=== PATIENT | male | born 1930 | race Caucasian/White ===

== ENCOUNTER 2018-05-24 16:14 | Emergency (ER) | payer MEDICARE ==
[~2018-05-24] VITALS: Ht 185.4 cm; Wt 90.7 kg
[~2018-05-24 16:14] MED LIST: ASPI81EC PO; ATOR20 PO; BENAML10/5 PO; BENAML20/5 PO; Coumadin5 MG; DABI150C PO; GABA400 PO; HYDACE5 PO; HYDR1TAB94 PO; LANS30EC PO; LEVSOD150 PO; MAGGLU250 PO; METANIX; METANX CAPSULE1 EACH PO; METF500 PO; METO25ER PO; METO50ER PO; POTCHL20ER PO; Synthroid50 MCG PO
[2018-05-24 17:45] LABS: BASOPHILS ABSOLUTE AUTO 0.03 K/mm3 (0.00-0.23); BASOPHILS PERCENT AUTO 0 % (0-2); EOSINOPHILS ABSOLUTE AUTO 0.02 K/mm3 (0.00-0.68); EOSINOPHILS PERCENT AUTO 0 % (0-6); Hematocrit 40.7 % (37.0-53.0); Hemoglobin 13.6 g/dL (13.5-17.5); IMMATURE GRAN ABSOLUTE AUTO 0.05 K/mm3 (0.00-0.10); IMMATURE GRAN PERCENT AUTO 0 % (0-1); LYMPHOCYTES ABSOLUTE AUTO 0.79 K/mm3 (0.84-5.20); LYMPHOCYTES PERCENT AUTO 5 % (21-46); MONOCYTES ABSOLUTE AUTO 0.86 K/mm3 (0.16-1.47); MONOCYTES PERCENT AUTO 5 % (4-13); Mean Corpuscular HGB 32.1 pg (26.0-34.0); Mean Corpuscular HGB Conc 33.4 g/dL (31.5-36.5); Mean Corpuscular Volume 96 fL (80-100); Mean Platelet Volume 10.6 fL (9.1-12.4); NEUTROPHILS ABSOLUTE AUTO 15.23 K/mm3 (1.96-9.15); NEUTROPHILS PERCENT AUTO 90 % (41-73); Platelet Count 158 K/mm3 (150-400); RDW Coefficient Variation 14.4 % (11.7-14.2); RDW Standard Deviation 50.9 fL (35.1-46.3); Red Blood Cell Count 4.24 M/mm3 (4.30-5.90); White Blood Cell Count 16.98 K/mm3 (4.00-11.30)
[2018-05-24 17:58] LABS: Source, Urine Clean Catch
[2018-05-24 17:58] LABS: Albumin, Blood 3.8 g/dL (3.4-5.0); Albumin/Globulin Ratio 0.9 (0.8-1.8); Bilirubin, Total 6.7 mg/dL (0.1-1.0); Bun/Creatinine Ratio 14.2 (12.0-20.0); Calcium, Blood 8.8 mg/dL (8.5-10.1); Creatinine, Blood 1.41 mg/dL (0.60-1.20); Globulin, Blood 4.1 g/dL (2.2-4.0); Potassium, Blood 4.1 mmol/L (3.5-5.5); Total Protein, Blood 7.9 g/dL (6.4-8.2); Troponin I 0.027 ng/mL (0.000-0.040)
[2018-05-24 18:01] LABS: Blood, Urine 5+ (Neg); Glucose Qualitative, Urine Neg (Neg); Ketones, Urine 2+ (Neg); Leukocyte Esterase, Urine Neg (Neg); Nitrite, Urine Neg (Neg); Protein, Urine 4+ (Neg); Urobilinogen, Urine 2+ (Normal)
[2018-05-24 18:17] LABS: Bilirubin, Urine 2+ (Neg)
[2018-05-24 18:28] LABS: Appearance, Urine Hazy (Clear); Color, Urine Amber (P-Yellow)
[2018-05-24 18:29] LABS: Bacteria Mod /hpf; Squamous Epithelial Cells Few /hpf (Few)
[2018-05-24 18:30] LABS: Mucus Light (0-Heavy)
== END 2018-05-24 21:57 | disposition short-term general hospital (02) ==
LOC: ER 16:14
PROVIDERS: Emergency Medicine; Physician Assistant
DX: A41.9 Sepsis, unspecified organism (principal); K83.09 Other cholangitis; E87.2 Acidosis; I48.91 Unspecified atrial fibrillation; I10 Essential (primary) hypertension; Z88.8 Allergy status to other drugs, medicaments and biological substances; Z88.2 Allergy status to sulfonamides; Z79.899 Other long term (current) drug therapy; Z79.84 Long term (current) use of oral hypoglycemic drugs; Z79.01 Long term (current) use of anticoagulants
CPT/HCPCS: 36415; 74176; 80053; 81001; 83605; 83690; 84484; 85025; 87040; 87077; 87086; 87186; 93005; 93010; 96361; 96365; 96375; 99285-25; J2405; J2543; J3010; J7030

== ENCOUNTER 2019-01-21 15:57 | Inpatient (IN) | payer MEDICARE ==
[~2019-01-21] VITALS: Ht 188 cm; Wt 91.1 kg
[~2019-01-21 15:57] MED LIST changes: +Amlodipine-Ben1 EACH PO; +Augmentin 875-1 EACH PO; +BENADRYL25 MG PO; -BENAML20/5 PO; -Coumadin5 MG; +Coumadin5 MG PO; +LEVSOD100 PO; -LEVSOD150 PO; +Prednisone20 MG PO; +Prilosec Otc20 MG PO
[2019-01-21 16:28] LABS: BASOPHILS ABSOLUTE AUTO 0.04 K/mm3 (0.00-0.23); BASOPHILS PERCENT AUTO 0 % (0-2); EOSINOPHILS ABSOLUTE AUTO 0.06 K/mm3 (0.00-0.68); EOSINOPHILS PERCENT AUTO 1 % (0-6); Hematocrit 31.3 % (37.0-53.0); Hemoglobin 10.2 g/dL (13.5-17.5); IMMATURE GRAN ABSOLUTE AUTO 0.04 K/mm3 (0.00-0.10); IMMATURE GRAN PERCENT AUTO 0 % (0-1); LYMPHOCYTES ABSOLUTE AUTO 1.42 K/mm3 (0.84-5.20); LYMPHOCYTES PERCENT AUTO 12 % (21-46); MONOCYTES PERCENT AUTO 5 % (4-13); Mean Corpuscular HGB 29.7 pg (26.0-34.0); Mean Corpuscular HGB Conc 32.6 g/dL (31.5-36.5); Mean Corpuscular Volume 91 fL (80-100); Mean Platelet Volume 10.2 fL (9.1-12.4); NEUTROPHILS PERCENT AUTO 82 % (41-73); Platelet Count 210 K/mm3 (150-400); RDW Coefficient Variation 14.8 % (11.7-14.2); RDW Standard Deviation 49.2 fL (35.1-46.3); Red Blood Cell Count 3.43 M/mm3 (4.30-5.90); White Blood Cell Count 11.66 K/mm3 (4.00-11.30)
[2019-01-21] MEDS ORDERED: PAROEX473 ML PO (16:49)
[2019-01-21 16:50] LABS: Albumin, Blood 3.7 g/dL (3.4-5.0); Albumin/Globulin Ratio 1.2 (0.8-1.8); Bilirubin, Total 0.4 mg/dL (0.1-1.0); Calcium, Blood 8.9 mg/dL (8.5-10.1); Creatinine, Blood 1.48 mg/dL (0.60-1.20); Globulin, Blood 3.2 g/dL (2.2-4.0); Potassium, Blood 4.6 mmol/L (3.5-5.5); Total Protein, Blood 6.9 g/dL (6.4-8.2)
[2019-01-21] MEDS ORDERED: AMLODIPINE BESYLATE/ PO (16:50)
[2019-01-21] MEDS ORDERED: ATORVASTATIN CA20 MG PO (16:51)
[2019-01-21 17:03] LABS: Prothrombin Time Results >90.0 Sec (9.7-11.5)
[2019-01-21] MEDS ORDERED: Aspirin EC81 MG PO (18:25)
[2019-01-21] MEDS ORDERED: METANX CAPSULE1 EACH PO ×2 (18:29→19:20)
[2019-01-21] MEDS ORDERED: VITAMIN D31000 UNI2 PO (18:29)
[2019-01-21] MEDS ORDERED: ABAT250V (19:20)
--- NOTE | 2019-01-21 19:30 | NUR ---
ADMISISON PT ARRIVES TO PCU3 FROM ER VIA GURNEY. PT IS CURRENTLY AOX4. VSS, AMBULATES WITH STANDBY ASSIST TO HOSPITAL BED. PT REPORTS THAT HE AMBULATES INDEPENDENTLY WITH NO ASSISTIVE DEVICES AT HOME, APPEARS TO BE STEADY ON HIS FEET. DENIES DIZZYNESS, LIGHTHEADEDNESS. LUNG SOUNDS CLEAR THROUGHOUT, O2 SATS >90% ON RA. CARDIAC RHYTHM IS AFIB W/ BBB IN THE 70s. FAMILY AT BEDSIDE. PT ORIENTED TO ROOM AND CALL LIGHT SYSTEM. EDUCATED ON CALLING FOR ASSISTANCE R/T CURRENT ILLNESS- VERBALIZES UNDERSTANDING. WILL CONTINUE WITH ADMISSION AND MONITORING. BED IN LOW POSITION, CALL LIGHT IN REACH.
--- NOTE | 2019-01-21 21:30 | NUR ---
DR DAMIAN PHYSICIAN CONSULTED, DR DAMIAN, IN TO SEE PATIENT FOR CONSULTATION. DETERMINES THAT HE IS WANTING TO SCOPE PATIENT WHEN CLOTTING FACTORS HAVE NORMALIZED. VERBAL ORDERS TO ALLOW PT TO HAVE CLEAR LIQUID DIET WITH NO REDS FOR NOW. WILL INPUT ORDERS.
[2019-01-21] MEDS ORDERED: PERIDEX15 ML MM (21:46)
--- NOTE | 2019-01-21 23:54 | NUR ---
PROVIDER CONTACTED PT REQUESTING HOME NIGHTIME DOSE GABAPENTIN OF 400 MG. AGUS VILLANUEVA CONTACTED AND ORDERS RECEIVED FOR ONE TIME DOSE FOR THIS EVENING, BUT REQUESTING FOLLOWING PHYSICIAN TO DETERMINE DAILY USE FOR THIS ADMISSION. WILL INPUT ORDER AND ADMINISTER.
[2019-01-22 04:16] LABS: BASOPHILS ABSOLUTE AUTO 0.02 K/mm3 (0.00-0.23); BASOPHILS PERCENT AUTO 0 % (0-2); EOSINOPHILS ABSOLUTE AUTO 0.16 K/mm3 (0.00-0.68); EOSINOPHILS PERCENT AUTO 2 % (0-6); Hematocrit 21.3 % (37.0-53.0); IMMATURE GRAN ABSOLUTE AUTO 0.03 K/mm3 (0.00-0.10); IMMATURE GRAN PERCENT AUTO 0 % (0-1); LYMPHOCYTES ABSOLUTE AUTO 2.18 K/mm3 (0.84-5.20); LYMPHOCYTES PERCENT AUTO 29 % (21-46); MONOCYTES PERCENT AUTO 9 % (4-13); Mean Corpuscular HGB 28.9 pg (26.0-34.0); Mean Corpuscular HGB Conc 32.9 g/dL (31.5-36.5); Mean Platelet Volume 10.5 fL (9.1-12.4); NEUTROPHILS ABSOLUTE AUTO 4.41 K/mm3 (1.96-9.15); NEUTROPHILS PERCENT AUTO 59 % (41-73); Platelet Count 147 K/mm3 (150-400); RDW Coefficient Variation 14.6 % (11.7-14.2); RDW Standard Deviation 47.3 fL (35.1-46.3); Red Blood Cell Count 2.42 M/mm3 (4.30-5.90)
[2019-01-22 04:19] LABS: Mean Corpuscular Volume 88 fL (80-100)
[2019-01-22 04:29] LABS: International Normalized Ratio 3.67; Prothrombin Time Results 34.6 Sec (9.7-11.5)
[2019-01-22 04:35] LABS: Albumin/Globulin Ratio 1.2 (0.8-1.8); Bilirubin, Total 0.4 mg/dL (0.1-1.0); Bun/Creatinine Ratio 24.1 (12.0-20.0); Calcium, Blood 7.9 mg/dL (8.5-10.1); Creatinine, Blood 1.33 mg/dL (0.60-1.20); Globulin, Blood 2.5 g/dL (2.2-4.0); Total Protein, Blood 5.5 g/dL (6.4-8.2)
--- NOTE | 2019-01-22 04:35 | NUR ---
PROVIDER CONTACTED PT WITH DROP IN HEMOGLOBIN TO 7.0. DR BARNETT CONTACTED AND ORDERS RECEIVED TO TRANSFUSE ONE UNIT PRBCs. WILL INPUT ORDER AND ADMINISTER.
--- NOTE | 2019-01-22 06:34 | NUR ---
SHIFT SUMMARY PT HAS REMAINED AOX4 THROUGHOUT THE NIGHT. VSS. PLEASANT AND COOPERATIVE WITH CARE. HAS RESTED THROUGHOUT MUCH OF THE NIGHT, BUT REPORTS THAT "HE DID NOT SLEEP WELL". DENIES PAIN. DENIES N/V, TOLERATING CLEAR LIQUID DIET WELL. DR NATI DE LA CRUZ WITH DARK DIET SODA. TWO UNITS FFP GIVEN AT START OF SHIFT, PT TOLERATED WELL. PROTONIX DRIP CONTINUES TO INFUSE AND BLOOD SLIP READY TO SEND TO LAB FOR INITIATION. NO OTHER CHANGES NOTED FROM INITIAL ASSESSMENT. WILL CONTINUE TO MONITOR AND REPORT TO ONCOMING SHIFT RN. BED IN LOW POSITION, CALL LIGHT IN REACH.
--- NOTE | 2019-01-22 07:38 | NUR ---
AM NOTE. ASSUMED CARE OF PT APROX 0700, PT IS A&Ox4 AND SBA IN THE ROOM. PT DENIES ANY CHEST PAIN/PRESSURE, N/V, SOB OR LIGHTHEADED/DIZZINESS. PT IS TO GET 1 UNIT PRBCS, PT IS AWARE AND AGREEABLE. PT'S VS STABLE AT THIS TIME. PT IS IN AFIB IN THE 90'S, MURMUR HEARD, PT HAS HAD VALVES REPLACED. L/S CLEAR T/O, BT PRESENT AND HYPERACTIVE IN ALL QUADS. ABD IS SOFT AND NONTENDER TO PALP. NO EDEMA NOTED ON ASSESMENT. CALL LIGHT IN REACH, WILL CONTINUE TO MONITOR.
--- NOTE | 2019-01-22 10:35 | NUR ---
PT UPDATE... PT GOT UP TO USE THE BATHROOM. PT HAD MULTIPLE LIQUID MAROON/BLACK BMS. PT BECAME PALE, LIGHTHEADED AND DIAPHORETIC DURING THIS TIME. PT WAS HELPED BACK TO BED. 1UNIT OF PRBCS ABOUT TO BE TRANSFUSED.
[2019-01-22 10:52] LABS: Hematocrit 21.8 % (37.0-53.0); Hemoglobin 7.1 g/dL (13.5-17.5)
--- NOTE | 2019-01-22 15:32 | NUR ---
Pt visit this afternoon. Pt visiting with many people in the room. Pt appears comfortable at this time. Instructed Pt palliative care will F/U at a later time. Spoke with bedside nurse and discussed case. Reviewed chart and plan of care.
[2019-01-22 17:17] LABS: Hematocrit 23.1 % (37.0-53.0); Hemoglobin 7.4 g/dL (13.5-17.5)
--- NOTE | 2019-01-22 19:27 | NUR ---
SHIFT SUMMARY. PT HAS NOT HAD ANY MORE MAROON/BLACK STOOLS SINCE FIRST EPISODE THIS AM. PT'S VS HAVE BEEN STABLE. 1 UNIT OF PRBCS TRANSFUSED. PT'S AT THE BEDSIDE MOST OF THE DAY. WILL CONTINUE TO MONITOR UNTIL REPORT IS GIVEN TO ONCOMING RN
[2019-01-22 23:05] LABS: Hematocrit 22.8 % (37.0-53.0); Hemoglobin 7.5 g/dL (13.5-17.5)
[2019-01-23 04:17] LABS: BASOPHILS ABSOLUTE AUTO 0.02 K/mm3 (0.00-0.23); BASOPHILS PERCENT AUTO 0 % (0-2); EOSINOPHILS ABSOLUTE AUTO 0.26 K/mm3 (0.00-0.68); EOSINOPHILS PERCENT AUTO 3 % (0-6); Hemoglobin 7.8 g/dL (13.5-17.5); IMMATURE GRAN ABSOLUTE AUTO 0.03 K/mm3 (0.00-0.10); IMMATURE GRAN PERCENT AUTO 0 % (0-1); LYMPHOCYTES ABSOLUTE AUTO 2.09 K/mm3 (0.84-5.20); LYMPHOCYTES PERCENT AUTO 27 % (21-46); MONOCYTES ABSOLUTE AUTO 0.68 K/mm3 (0.16-1.47); MONOCYTES PERCENT AUTO 9 % (4-13); Mean Corpuscular HGB 29.1 pg (26.0-34.0); Mean Corpuscular HGB Conc 32.5 g/dL (31.5-36.5); Mean Corpuscular Volume 90 fL (80-100); Mean Platelet Volume 10.3 fL (9.1-12.4); NEUTROPHILS ABSOLUTE AUTO 4.56 K/mm3 (1.96-9.15); NEUTROPHILS PERCENT AUTO 60 % (41-73); Platelet Count 152 K/mm3 (150-400); RDW Coefficient Variation 14.9 % (11.7-14.2); RDW Standard Deviation 47.9 fL (35.1-46.3); Red Blood Cell Count 2.68 M/mm3 (4.30-5.90); White Blood Cell Count 7.64 K/mm3 (4.00-11.30)
[2019-01-23 04:31] LABS: International Normalized Ratio 1.86; Prothrombin Time Results 18.6 Sec (9.7-11.5)
[2019-01-23 04:34] LABS: Bun/Creatinine Ratio 19.6 (12.0-20.0); Calcium, Blood 7.8 mg/dL (8.5-10.1); Creatinine, Blood 1.38 mg/dL (0.60-1.20); Potassium, Blood 3.9 mmol/L (3.5-5.5)
--- NOTE | 2019-01-23 10:46 | NUR ---
Initial Visit: Palliative Care Consult for Advanced Care Planning. Pt is A&O and denies pain at this time. Pt denies dyspnea, anxiety, and nausea. Pt's Yesica is present during visit. Engaged in therapeutic discussion regarding advanced care planning with Pt and . Pt reports living at home with his and is of [employer] laila. Pt reports he is independent of his ADLs and still drives. Pt reports adequate support and can call on his son if needs of care arises. Discussed AD/POLST with Pt. Pt reports having a POLST completed at home. Requested Yesica to bring in for medical records. Pt and report no concerns at this time. Spoke with bedside nurse Loretta and discussed case. No concerns reported at this time. Palliative Care will remain available.
[2019-01-23 11:20] LABS: Hematocrit 24.5 % (37.0-53.0)
--- NOTE | 2019-01-23 14:28 | NUR ---
01/23/19 1428 Nadja Doe History, Chart, Medications and Allergies reviewed before start of procedure.PATIENT CONFIRMS NPO STATUS AND AGREES WITH SCHEDULED PROCEDURE.MONITOR INTACT WITH CONTINUOUS PULSE OXIMETRY AND INTERMITTENT BP. O2 VIA N/C INTACT THROUGHOUT SEDATION/PROCEDURE. 3-LEAD EKG REVIEWED WITH PHYSICIAN PRIOR TO START OF PROCEDURE. PATIENT DETERMINED TO BE ASA APPROPRIATE FOR PROPOFOL SEDATION PRIOR TO START OF PROCEDURE BY DR. DAMIAN.
--- NOTE | 2019-01-23 15:15 | NUR ---
PT TRANSPORTED TO [facility]. AGREES WITH PLANNED PROCEDURE.
--- NOTE | 2019-01-23 15:17 | NUR ---
day surgery Pt transfered to day surgery for scope with dr Moore. Family at bedside with pt. megan JUAN.
--- NOTE | 2019-01-23 15:21 | NUR ---
LUNG SOUND CLEAR.
--- NOTE | 2019-01-23 16:03 | NUR ---
NOTE PT HAS HAD NO BOWEL MOVEMENTS TODAY. PROTONIX INFUSING AT 10ML/HR. PT DENIED ABD. CRAMPING, BLOATING OR N/V. NPO FOR SCOPE. PT USING ORAL SWABS WITH ICE WATER FOR WETTING HIS MOUTH. VSS. AT BEDSIDE. CONTINUE POT.
[2019-01-24 04:09] LABS: BASOPHILS ABSOLUTE AUTO 0.03 K/mm3 (0.00-0.23); BASOPHILS PERCENT AUTO 1 % (0-2); EOSINOPHILS ABSOLUTE AUTO 0.23 K/mm3 (0.00-0.68); EOSINOPHILS PERCENT AUTO 4 % (0-6); Hematocrit 24.1 % (37.0-53.0); Hemoglobin 7.9 g/dL (13.5-17.5); IMMATURE GRAN ABSOLUTE AUTO 0.03 K/mm3 (0.00-0.10); IMMATURE GRAN PERCENT AUTO 1 % (0-1); LYMPHOCYTES ABSOLUTE AUTO 1.97 K/mm3 (0.84-5.20); LYMPHOCYTES PERCENT AUTO 30 % (21-46); MONOCYTES ABSOLUTE AUTO 0.66 K/mm3 (0.16-1.47); MONOCYTES PERCENT AUTO 10 % (4-13); Mean Corpuscular HGB Conc 32.8 g/dL (31.5-36.5); Mean Corpuscular Volume 89 fL (80-100); Mean Platelet Volume 10.1 fL (9.1-12.4); NEUTROPHILS ABSOLUTE AUTO 3.66 K/mm3 (1.96-9.15); NEUTROPHILS PERCENT AUTO 56 % (41-73); Platelet Count 163 K/mm3 (150-400); RDW Coefficient Variation 14.6 % (11.7-14.2); RDW Standard Deviation 47.1 fL (35.1-46.3); Red Blood Cell Count 2.72 M/mm3 (4.30-5.90); White Blood Cell Count 6.58 K/mm3 (4.00-11.30)
--- NOTE | 2019-01-24 04:20 | NUR ---
SHIFT SUMMARY: PATIENT X2 BLACK STOOLS THIS SHIFT BUT HGB STILL IMPROVING. NO OTHER ISSUES NOTED, CALL LIGHT WITHIN REACH, BED LOW AND LOCKED.
[2019-01-24 04:23] LABS: International Normalized Ratio 1.37; Prothrombin Time Results 14.1 Sec (9.7-11.5)
--- NOTE | 2019-01-24 12:30 | NUR ---
DISCHARGE INSTRUCTIONS PROVIDED. PT EDUCATED ON COUMADIN. NO NEW MEDICATIONS. ALL QUESTIONS ANSWERED. PT TAKEN OUT BY WHEELCHAIR.
== END 2019-01-24 12:35 | disposition home or self-care (01) | DRG 918 ==
LOC: ER 15:57 → PCU 17:51
PROVIDERS: Emergency Medicine; Internal Medicine Gastroenterology; Student in an Organized Health Care Education/Training Program; ADMIT Internal Medicine
PROC: 30233K1 Transfusion of Nonautologous Frozen Plasma into Peripheral Vein, Percutaneous Approach (ICD-10-PCS; 2019-01-22)
PROC: 30233N1 Transfusion of Nonautologous Red Blood Cells into Peripheral Vein, Percutaneous Approach (ICD-10-PCS; 2019-01-22)
PROC: 0DJD8ZZ Inspection of Lower Intestinal Tract, Via Natural or Artificial Opening Endoscopic (ICD-10-PCS; 2019-01-23)
PROC: 0DJ08ZZ Inspection of Upper Intestinal Tract, Via Natural or Artificial Opening Endoscopic (ICD-10-PCS; principal; 2019-01-23 13:00)
DX: T45.511A Poisoning by anticoagulants, accidental (unintentional), initial encounter (principal); D68.32 Hemorrhagic disorder due to extrinsic circulating anticoagulants; K92.1 Melena; D62 Acute posthemorrhagic anemia; K22.70 Barrett's esophagus without dysplasia; K44.9 Diaphragmatic hernia without obstruction or gangrene; K31.7 Polyp of stomach and duodenum; K63.9 Disease of intestine, unspecified; D13.7 Benign neoplasm of endocrine pancreas; I48.2 Chronic atrial fibrillation; I12.9 Hypertensive chronic kidney disease with stage 1 through stage 4 chronic kidney disease, or unspecified chronic kidney disease; E11.22 Type 2 diabetes mellitus with diabetic chronic kidney disease; N18.3 Chronic kidney disease, stage 3 (moderate); I77.89 Other specified disorders of arteries and arterioles; K21.9 Gastro-esophageal reflux disease without esophagitis; E78.5 Hyperlipidemia, unspecified; N40.1 Benign prostatic hyperplasia with lower urinary tract symptoms; R33.8 Other retention of urine; E11.40 Type 2 diabetes mellitus with diabetic neuropathy, unspecified; E89.0 Postprocedural hypothyroidism; Z85.850 Personal history of malignant neoplasm of thyroid; Z95.2 Presence of prosthetic heart valve; Z88.2 Allergy status to sulfonamides; Z88.8 Allergy status to other drugs, medicaments and biological substances; Z79.01 Long term (current) use of anticoagulants; Z79.82 Long term (current) use of aspirin; Z79.899 Other long term (current) drug therapy
CPT/HCPCS: 36415; 36430; 80048; 80053; 82272; 82947; 85014; 85018; 85025; 85610; 85730; 86850; 86900; 86901; 86923; 93005; 93010; 96365; 99285-25; C9113; J2704; J7030; J7120; P9016; P9059

== ENCOUNTER → 2019-03-07 | Outpatient (CLI) | payer MEDICARE ==
[~2019-03-07] MED LIST changes: +ABAT250V; +AMLODIPINE BESYLATE/ PO; +ATORVASTATIN CA20 MG PO; +Aspirin EC81 MG PO; +PAROEX473 ML PO; +PERIDEX15 ML MM; +VITAMIN D31000 UNI2 PO
[2019-03-08 13:37] LABS: Stool Occult Bld Immuno 1 Negative (NEGATIVE)
== END ==
LOC: OLS 13:30 → LAB SHORT 13:30 → LAB FUT 02-25 12:55
PROVIDERS: Student in an Organized Health Care Education/Training Program
DX: D50.0 Iron deficiency anemia secondary to blood loss (chronic) (principal)
CPT/HCPCS: 82274

== ENCOUNTER → 2019-04-27 | Outpatient (CLI) | payer MEDICARE | END | disposition home or self-care (01) | LOC: PLD 07:13 → LAB SHORT 07:13 | DX: C73 Malignant neoplasm of thyroid gland (principal) | CPT/HCPCS: 88173 ==

== ENCOUNTER → 2019-05-03 | Outpatient (CLI) | payer MEDICARE ==
[2019-05-03 11:02] LABS: BASOPHILS ABSOLUTE AUTO 0.06 K/mm3 (0.00-0.23); BASOPHILS PERCENT AUTO 1 % (0-2); EOSINOPHILS ABSOLUTE AUTO 0.81 K/mm3 (0.00-0.68); EOSINOPHILS PERCENT AUTO 8 % (0-6); Hematocrit 39.3 % (37.0-53.0); Hemoglobin 12.9 g/dL (13.5-17.5); IMMATURE GRAN ABSOLUTE AUTO 0.05 K/mm3 (0.00-0.10); IMMATURE GRAN PERCENT AUTO 1 % (0-1); LYMPHOCYTES ABSOLUTE AUTO 1.52 K/mm3 (0.84-5.20); LYMPHOCYTES PERCENT AUTO 16 % (21-46); MONOCYTES ABSOLUTE AUTO 0.67 K/mm3 (0.16-1.47); MONOCYTES PERCENT AUTO 7 % (4-13); Mean Corpuscular HGB 29.1 pg (26.0-34.0); Mean Corpuscular HGB Conc 32.8 g/dL (31.5-36.5); Mean Corpuscular Volume 89 fL (80-100); Mean Platelet Volume 10.2 fL (9.1-12.4); NEUTROPHILS PERCENT AUTO 68 % (41-73); Platelet Count 177 K/mm3 (150-400); RDW Standard Deviation 74.8 fL (35.1-46.3); Red Blood Cell Count 4.43 M/mm3 (4.30-5.90); White Blood Cell Count 9.71 K/mm3 (4.00-11.30)
[2019-05-03 11:16] LABS: Alanine Aminotransfer (ALT/SGP 28 U/L (12-78); Albumin, Blood 3.5 g/dL (3.4-5.0); Alk Phos 68 U/L (40-126); Anion Gap 9 mmol/L (6-16); Aspartate Aminotrans (AST/SGOT 22 U/L (12-37); Bilirubin, Total 0.6 mg/dL (0.1-1.0); Blood Urea Nitrogen 17 mg/dL (8-24); Bun/Creatinine Ratio 12.1 (12.0-20.0); CO2, Blood 26 mmol/L (21-32); Calcium, Blood 8.6 mg/dL (8.5-10.1); Chloride, Blood 101 mmol/L (98-108); Globulin, Blood 3.6 g/dL (2.2-4.0); Glomerular Filtration Rate 48 (60-); Glucose, Blood 222 mg/dL (70-99); Potassium, Blood 4.4 mmol/L (3.5-5.5); Sodium, Blood 136 mmol/L (136-145); Total Protein, Blood 7.1 g/dL (6.4-8.2)
[2019-05-03 11:17] LABS: Troponin I <0.017 ng/mL (0.000-0.040)
[2019-05-03 11:53] LABS: International Normalized Ratio 2.19; Prothrombin Time Results 21.6 Sec (9.7-11.5)
== END ==
LOC: LAB SHORT 10:57 → LAB EV 10:57
PROVIDERS: Emergency Medicine
DX: Z79.01 Long term (current) use of anticoagulants (principal); Z51.81 Encounter for therapeutic drug level monitoring; R07.9 Chest pain, unspecified
CPT/HCPCS: 80053; 84484; 85025; 85610

== ENCOUNTER 2019-06-01 05:29 | Emergency (ER) | payer OTHER, MEDICARE ==
[~2019-06-01] VITALS: Ht 185.4 cm; Wt 87.1 kg
[2019-06-01 05:54] LABS: BASOPHILS ABSOLUTE AUTO 0.12 K/mm3 (0.00-0.23); BASOPHILS PERCENT AUTO 1 % (0-2); EOSINOPHILS ABSOLUTE AUTO 1.72 K/mm3 (0.00-0.68); EOSINOPHILS PERCENT AUTO 8 % (0-6); Hematocrit 41.8 % (37.0-53.0); Hemoglobin 13.7 g/dL (13.5-17.5); IMMATURE GRAN ABSOLUTE AUTO 0.16 K/mm3 (0.00-0.10); IMMATURE GRAN PERCENT AUTO 1 % (0-1); LYMPHOCYTES ABSOLUTE AUTO 2.69 K/mm3 (0.84-5.20); LYMPHOCYTES PERCENT AUTO 13 % (21-46); MONOCYTES ABSOLUTE AUTO 1.73 K/mm3 (0.16-1.47); MONOCYTES PERCENT AUTO 8 % (4-13); Mean Corpuscular HGB 30.6 pg (26.0-34.0); Mean Corpuscular HGB Conc 32.8 g/dL (31.5-36.5); Mean Corpuscular Volume 93 fL (80-100); Mean Platelet Volume 9.4 fL (9.1-12.4); NEUTROPHILS ABSOLUTE AUTO 14.35 K/mm3 (1.96-9.15); NEUTROPHILS PERCENT AUTO 69 % (41-73); Platelet Count 209 K/mm3 (150-400); RDW Coefficient Variation 19.4 % (11.7-14.2); RDW Standard Deviation 69.2 fL (35.1-46.3); Red Blood Cell Count 4.48 M/mm3 (4.30-5.90); White Blood Cell Count 20.77 K/mm3 (4.00-11.30)
[2019-06-01 06:05] LABS: Alanine Aminotransfer (ALT/SGP 38 U/L (12-78); Albumin, Blood 3.4 g/dL (3.4-5.0); Albumin/Globulin Ratio 0.9 (0.8-1.8); Alk Phos 103 U/L (50-136); Anion Gap 6 mmol/L (6-16); Aspartate Aminotrans (AST/SGOT 22 U/L (12-37); Bilirubin, Total 0.8 mg/dL (0.1-1.0); Blood Urea Nitrogen 12 mg/dL (8-24); Bun/Creatinine Ratio 11.1 (12.0-20.0); CO2, Blood 28 mmol/L (21-32); Calcium, Blood 9.3 mg/dL (8.5-10.1); Chloride, Blood 100 mmol/L (98-108); Creatinine, Blood 1.08 mg/dL (0.60-1.20); Globulin, Blood 3.8 g/dL (2.2-4.0); Glomerular Filtration Rate >60 (60-); Glucose, Blood 151 mg/dL (70-99); Potassium, Blood 4.4 mmol/L (3.5-5.5); Sodium, Blood 134 mmol/L (136-145); Total Protein, Blood 7.2 g/dL (6.4-8.2); Troponin I <0.015 ng/mL (0.000-0.040)
[2019-06-01 06:48] LABS: International Normalized Ratio 2.69; Prothrombin Time Results 26.1 Sec (9.7-11.5)
[2019-06-01] MEDS ORDERED: OMEP20ER PO (09:29)
== END 2019-06-01 10:01 | disposition home or self-care (01) ==
LOC: ER 05:29
PROVIDERS: Emergency Medicine
DX: R07.9 Chest pain, unspecified (principal); R10.13 Epigastric pain; R13.10 Dysphagia, unspecified; J98.59 Other diseases of mediastinum, not elsewhere classified; E27.8 Other specified disorders of adrenal gland; I48.91 Unspecified atrial fibrillation; Z88.1 Allergy status to other antibiotic agents; Z88.8 Allergy status to other drugs, medicaments and biological substances; Z79.899 Other long term (current) drug therapy; Z79.01 Long term (current) use of anticoagulants; Z79.82 Long term (current) use of aspirin
CPT/HCPCS: 71046; 71260; 74176; 80053; 84484; 85025; 85610; 93005; 93010; 96374-59; 96375-59; 99285-25; C9113; J2060; Q9967

== ENCOUNTER → 2019-06-20 | Outpatient (CLI) | payer MEDICARE ==
[~2019-06-20] MED LIST changes: +Benazepril HCl20 MG PO; +LORTAB 10 MG-3473 ML PO; +OMEP20ER PO; +ONDA4ODT MM; +SUCRALFATE1 GM PO
[2019-06-22 06:57] LABS: Stool Occult Bld Immuno 1 Positive (NEGATIVE)
== END ==
LOC: LAB EV 20:00
PROVIDERS: Student in an Organized Health Care Education/Training Program
DX: R19.5 Other fecal abnormalities (principal)
CPT/HCPCS: 82274

== ENCOUNTER 2019-06-22 09:50 | Emergency (ER) | payer OTHER, MEDICARE ==
[~2019-06-22] VITALS: Ht 185.4 cm; Wt 83.9 kg
[~2019-06-22 09:50] MED LIST changes: -Benazepril HCl20 MG PO; -LORTAB 10 MG-3473 ML PO; -ONDA4ODT MM; -SUCRALFATE1 GM PO
[2019-06-22] MEDS ORDERED: Benazepril HCl20 MG PO (10:12)
[2019-06-22] MEDS ORDERED: SUCRALFATE1 GM PO (10:12)
[2019-06-22 10:39] LABS: BASOPHILS ABSOLUTE AUTO 0.15 K/mm3 (0.00-0.23); BASOPHILS PERCENT AUTO 1 % (0-2); EOSINOPHILS PERCENT AUTO 12 % (0-6); Hematocrit 40.3 % (37.0-53.0); Hemoglobin 13.3 g/dL (13.5-17.5); IMMATURE GRAN ABSOLUTE AUTO 0.36 K/mm3 (0.00-0.10); IMMATURE GRAN PERCENT AUTO 1 % (0-1); LYMPHOCYTES ABSOLUTE AUTO 1.77 K/mm3 (0.84-5.20); LYMPHOCYTES PERCENT AUTO 7 % (21-46); MONOCYTES ABSOLUTE AUTO 1.42 K/mm3 (0.16-1.47); MONOCYTES PERCENT AUTO 6 % (4-13); Mean Corpuscular HGB 32.1 pg (26.0-34.0); Mean Corpuscular Volume 97 fL (80-100); Mean Platelet Volume 9.8 fL (9.1-12.4); NEUTROPHILS ABSOLUTE AUTO 18.68 K/mm3 (1.96-9.15); NEUTROPHILS PERCENT AUTO 73 % (41-73); Platelet Count 209 K/mm3 (150-400); RDW Coefficient Variation 14.9 % (11.7-14.2); RDW Standard Deviation 51.1 fL (35.1-46.3); Red Blood Cell Count 4.14 M/mm3 (4.30-5.90); White Blood Cell Count 25.48 K/mm3 (4.00-11.30)
[2019-06-22 10:55] LABS: Anion Gap 7 mmol/L (6-16); Blood Urea Nitrogen 14 mg/dL (8-24); CO2, Blood 25 mmol/L (21-32); Calcium, Blood 8.9 mg/dL (8.5-10.1); Chloride, Blood 105 mmol/L (98-108); Glomerular Filtration Rate >60 (60-); Glucose, Blood 136 mg/dL (70-99); Potassium, Blood 4.2 mmol/L (3.5-5.5); Sodium, Blood 137 mmol/L (136-145)
[2019-06-22] MEDS ORDERED: LORTAB 10 MG-3473 ML PO (11:46)
[2019-06-22] MEDS ORDERED: ONDA4ODT MM (11:46)
== END 2019-06-22 12:30 | disposition home or self-care (01) ==
LOC: ER 09:50
PROVIDERS: Emergency Medicine
DX: J98.59 Other diseases of mediastinum, not elsewhere classified (principal); R22.2 Localized swelling, mass and lump, trunk; M54.2 Cervicalgia; I12.9 Hypertensive chronic kidney disease with stage 1 through stage 4 chronic kidney disease, or unspecified chronic kidney disease; E11.22 Type 2 diabetes mellitus with diabetic chronic kidney disease; N18.3 Chronic kidney disease, stage 3 (moderate); E11.40 Type 2 diabetes mellitus with diabetic neuropathy, unspecified; K21.9 Gastro-esophageal reflux disease without esophagitis; I48.91 Unspecified atrial fibrillation; Z88.1 Allergy status to other antibiotic agents; Z88.8 Allergy status to other drugs, medicaments and biological substances; Z79.899 Other long term (current) drug therapy; Z79.01 Long term (current) use of anticoagulants; Z79.82 Long term (current) use of aspirin
CPT/HCPCS: 36415; 70491; 80048; 85025; 96374-59; 96375-59; 99284-25; J2405; J3010; Q9967